=== PATIENT | male | born 1965 | race Caucasian/White ===

== ENCOUNTER 2018-08-22 06:10 | Emergency (ER) | payer MEDICAID, MEDICARE ==
[~2018-08-22] VITALS: Ht 177.8 cm; Wt 94.1 kg
[~2018-08-22 06:10] MED LIST: /DULO30CA; AMBI10TA
[2018-08-22] MEDS ORDERED: diphenhydrAMINE INJ 50MG/ML VIAL (J1200) IV STA (07:04)
[2018-08-22] MEDS ORDERED: dexameTHASONE 20 MG/5 ML VIAL (J1100) IV ONE (07:15)
[2018-08-22] MEDS ORDERED: FAMOTIDINE INJ 20MG/2ML VIAL (S0028) IVP ONE (07:15)
[2018-08-22] MEDS ORDERED: NS 1,000 ML IV ONE (07:15)
[2018-08-22] MEDS ORDERED: CLINDAMYCIN 900 MG in APPROPRIATE DILUENT 1 EA IV ONE (07:30)
[2018-08-22] MEDS ORDERED: FAMOTIDINE IV BAG 20 MG in APPROPRIATE DILUENT 1 EA IV ONE (07:30)
[2018-08-22 08:01] LABS: BASO # 0.1 10^3/uL (0.0-0.2); EOS # 0.3 10^3/uL (0.0-0.50); EOS % 3.6 % (0.0-3.0); HEMATOCRIT 44.4 % (42.0-52.0); HEMOGLOBIN 15.1 g/dl (13.5-17.5); LYMPH # 0.9 10^3/uL (1.5-4.5); LYMPH % 12.3 % (24.0-44.0); MEAN CORPUSCULAR HEMOGLOBIN 31.3 pg (27.0-33.0); MEAN CORPUSCULAR VOLUME 91.9 fl (80.0-96.0); MONO # 0.4 10^3/uL (0.0-0.8); MONO % 5.8 % (0.0-5.0); NEUTROPHILS # 5.4 10^3/uL (1.8-7.7); NEUTROPHILS % 76.4 % (36.0-66.0); PLATELET COUNT, AUTOMATED 251 10^3/uL (150-450); RED BLOOD COUNT 4.83 10^6/uL (4.30-6.10)
[2018-08-22 08:22] LABS: ALBUMIN 3.6 GM/DL (3.2-5.2); ALT/SGPT 34 U/L (12-78); BILIRUBIN,TOTAL 0.6 MG/DL (0.2-1.0); BLOOD UREA NITROGEN 10 MG/DL (7-18); C REACTIVE PROTEIN QUANTITATIV 0.31 MG/DL (0.00-0.30); CALCIUM LEVEL 8.6 MG/DL (8.5-10.1); CARBON DIOXIDE LEVEL 25 MEQ/L (21-32); CHLORIDE LEVEL 109 MEQ/L (98-107); CREATININE FOR GFR 0.91 MG/DL (0.70-1.30); GLOMERULAR FILTRATION RATE > 60.0 (>56); GLUCOSE, FASTING 85 MG/DL (70-100); POTASSIUM SERUM 4.2 MEQ/L (3.5-5.1); SODIUM LEVEL 140 MEQ/L (136-145); TOTAL PROTEIN 7.2 GM/DL (6.4-8.2)
--- NOTE | 2018-08-22 08:38 | REP ---
SOFT TISSUES NECK: AP and lateral views of the soft-tissues of the neck are performed. The uvula is enlarged extending inferiorly, posterior to the base of the tongue. Epiglottis is normal in size. There is no narrowing of the air way. The adenoids are not enlarged. There are degenerative changes of the spine. IMPRESSION: Enlargement of the uvula. Electronically Signed by Deonte Deras MD 08/24/2018 09:48 A
[2018-08-22 09:04] LABS: ERYTHROCYTE SEDIMENTATION RATE 4 mm/hr (0-20)
[2018-08-22] MEDS ORDERED: MEDR4PAK PO (12:26)
[2018-08-22] MEDS ORDERED: AUGM875T28 PO (12:26)
[2018-08-22 12:41] VITALS: BP 123/76
== END 2018-08-22 12:42 | disposition home or self-care (01) ==
LOC: M ED 06:10
DX: K12.2 Cellulitis and abscess of mouth (principal)

== ENCOUNTER 2019-06-02 09:22 | Emergency (ER) | payer MEDICARE, MEDICAID ==
[~2019-06-02] VITALS: Ht 177.8 cm; Wt 92.6 kg
[~2019-06-02 09:22] MED LIST changes: -/DULO30CA; +AUGM875T28 PO; +CBD OIL; +CYMB1CAP5; +GABA600T4 PO; +MEDR4PAK PO
[2019-06-02 09:23] VITALS: BP 117/78
[2019-06-02] MEDS ORDERED: KETOROLAC TROMETHAMINE 10 MG TAB PO ONE (10:00)
--- NOTE | 2019-06-02 10:14 | REP ---
Clinical: Trauma. Technique: AP, lateral, bilateral oblique views of the right ankle. Findings: Moderate swelling. No obvious acute fracture dislocation. Lateral view demonstrates chronic calcaneal heal spur. Impression: Swelling. No acute fracture. Electronically Signed by Dwayne Bustillos MD 06/02/2019 10:06 A
== END 2019-06-02 10:25 | disposition home or self-care (01) ==
LOC: M ED 09:22
DX: S93.401A Sprain of unspecified ligament of right ankle, initial encounter (principal); X58.XXXA Exposure to other specified factors, initial encounter; Y92.099 Unspecified place in other non-institutional residence as the place of occurrence of the external cause; Y93.89 Activity, other specified; Y99.9 Unspecified external cause status; F41.9 Anxiety disorder, unspecified; F17.290 Nicotine dependence, other tobacco product, uncomplicated; Z79.899 Other long term (current) drug therapy; Z91.040 Latex allergy status; Z91.018 Allergy to other foods

== ENCOUNTER 2020-09-04 12:49 | Emergency (ER) | payer MEDICARE, MEDICAID ==
[~2020-09-04] VITALS: Ht 177.8 cm; Wt 94.5 kg
[2020-09-04] MEDS ORDERED: BENA25CA4 PO (13:06)
[2020-09-04] MEDS ORDERED: NS 500 ML IV ONE (13:30)
[2020-09-04] MEDS ORDERED: FAMOTIDINE INJ 20MG/2ML VIAL (S0028 PER 1) IVP ONE (13:30)
[2020-09-04] MEDS ORDERED: dexameTHASONE 20MG/5ML VIAL (J1100 PER 1MG) IV ONE (13:30)
[2020-09-04] MEDS ORDERED: diphenhydrAMINE 50MG/ML VIAL (J1200) IV STA (13:30)
--- NOTE | 2020-09-04 14:07 | REP ---
INDICATION: throat pain. COMPARISON: None TECHNIQUE: Upright PA chest. FINDINGS: The lung baron are clear. Cardiac size is normal. The ann, mediastinum and skeletal structures are unremarkable. IMPRESSION: Essentially negative upright PA chest. <Electronically signed by Deonte Marquez > 09/04/20 [id number]
--- NOTE | 2020-09-04 14:11 | REP ---
INDICATION: throat pain. COMPARISON: 08/22/2018. TECHNIQUE: AP and lateral views. FINDINGS: The uvula again is enlarged as previously extending posterior to the tongue almost to the epiglottis. The prevertebral soft tissues are unremarkable. The subglottic trachea is unremarkable. The epiglottis does not appear enlarged. There is advanced degenerative disc disease in the cervical spine at C4-5, C5-6 and C6-7, similar to the prior study. IMPRESSION: Enlarged uvula as described, similar to the prior study. Cervical spine degenerative disc disease, similar to the prior study. <Electronically signed by Deonte Marquez > 09/04/20 [id number]
[2020-09-04 14:47] LABS: BASO # 0.1 10^3/uL (0.0-0.2); EOS # 0.5 10^3/uL (0.0-0.5); EOS % 7.3 % (0.0-3.0); HEMATOCRIT 44.9 % (42.0-52.0); HEMOGLOBIN 15.3 g/dl (13.5-17.5); LYMPH # 1.5 10^3/uL (1.5-5.0); LYMPH % 24.5 % (24.0-44.0); MEAN CORPUSCULAR HEMOGLOBIN 31.9 pg (27.0-33.0); MEAN CORPUSCULAR HGB CONC 34.1 g/dl (32.0-36.5); MEAN CORPUSCULAR VOLUME 93.7 fl (80.0-96.0); MONO # 0.7 10^3/uL (0.0-0.8); MONO % 11.7 % (2.0-8.0); NEUTROPHILS # 3.4 10^3/uL (1.5-8.5); PLATELET COUNT, AUTOMATED 273 10^3/uL (150-450); RED BLOOD COUNT 4.79 10^6/uL (4.30-6.10); WHITE BLOOD COUNT 6.2 10^3/uL (4.0-10.0)
[2020-09-04 15:07] LABS: BLOOD UREA NITROGEN 13 MG/DL (7-18); CARBON DIOXIDE LEVEL 22 MEQ/L (21-32); CHLORIDE LEVEL 109 MEQ/L (98-107); CREATININE FOR GFR 0.72 MG/DL (0.70-1.30); GLOMERULAR FILTRATION RATE > 60.0 (>56); GLUCOSE, FASTING 97 MG/DL (70-100); POTASSIUM SERUM 4.3 MEQ/L (3.5-5.1); SODIUM LEVEL 139 MEQ/L (136-145)
[2020-09-04] MEDS ORDERED: PRED50TA PO (16:04)
[2020-09-04 16:08] VITALS: BP 141/79
== END 2020-09-04 16:24 | disposition home or self-care (01) ==
LOC: M ED 12:49
DX: K12.2 Cellulitis and abscess of mouth (principal); M50.30 Other cervical disc degeneration, unspecified cervical region; G89.29 Other chronic pain; F17.200 Nicotine dependence, unspecified, uncomplicated; Z79.899 Other long term (current) drug therapy; Z91.041 Radiographic dye allergy status; Z91.018 Allergy to other foods
CPT/HCPCS: 36415; 70360; 71045; 80048; 85025; 87040; 87880; 96361; 96374; 96375; 99284; J1100; J1200

== ENCOUNTER → 2022-10-05 | Outpatient (CLI) | payer MEDICARE, MEDICAID ==
[~2022-10-05] MED LIST changes: +BENA25CA4 PO; +PRED50TA PO
== END ==
LOC: M RAD 11:56
PROVIDERS: ATTEND Physician Assistant Surgical
DX: M79.662 Pain in left lower leg (principal); M71.22 Synovial cyst of popliteal space [Baker], left knee

== ENCOUNTER → 2023-07-13 | Outpatient (CLI) | payer MEDICARE | LOC: M OUTALCOH 07:53 | PROVIDERS: ATTEND Psychiatry & Neurology Psychiatry | DX: Z79.899 Other long term (current) drug therapy (principal); F32.A Depression, unspecified; F41.9 Anxiety disorder, unspecified ==

== ENCOUNTER 2023-07-20 07:54 | Outpatient (RCR) | payer MEDICARE | END 2023-08-05 | LOC: M OUTALCOH 07:54 | PROVIDERS: ATTEND Psychiatry & Neurology Psychiatry | DX: F10.10 Alcohol abuse, uncomplicated (principal); F12.10 Cannabis abuse, uncomplicated ==